=== PATIENT | male | born 1960 | race Caucasian/White ===

== ENCOUNTER → 2024-12-02 10:18 | Outpatient (REF) | payer MEDICARE, OTHER, SELFPAY | LOC: REG 10:18 | PROVIDERS: ATTENDING PHYSICIAN Family Medicine | DX: M54.2 Cervicalgia (principal); M79.602 Pain in left arm | CPT/HCPCS: 72050; 72072 ==

== ENCOUNTER → 2025-01-05 06:42 | Outpatient (REF) | payer MEDICARE, OTHER, SELFPAY | LOC: PAVMRI 06:42 | PROVIDERS: ATTENDING PHYSICIAN Family Medicine | DX: M54.2 Cervicalgia (principal); M79.602 Pain in left arm | CPT/HCPCS: 72141 ==